=== PATIENT | male | born 1970 | race African-American/Black ===

== ENCOUNTER 2020-01-16 09:06 | Emergency (ER) | payer OTHER ==
[~2020-01-16] VITALS: Ht 190.5 cm; Wt 113.6 kg
[2020-01-16 09:26] VITALS: TEMP 98
[2020-01-16] MEDS ORDERED: FLEXERIL 1010 MG/TAB PO (11:07)
[2020-01-16 11:38] VITALS: BP 138/106; PULSE 83
== END 2020-01-16 11:40 | disposition home or self-care (01) ==
LOC: COL.ER 09:06
DX: S16.1XXA Strain of muscle, fascia and tendon at neck level, initial encounter (principal); V43.52XA Car driver injured in collision with other type car in traffic accident, initial encounter
CPT/HCPCS: J2405; J3010